=== PATIENT | female | born 1985 | race Hispanic/Latino ===

== ENCOUNTER 2018-01-02 11:45 | Outpatient (CLI) | payer BC ==
[2018-01-02 12:04] LABS: Hematocrit 37.1 % (30.3-42.9); Hemoglobin 12.5 gm/dl (10.1-14.3); Mean Corpuscular HGB Conc 34 % (30-34); Mean Corpuscular Hemoglobin 29 pg (28-32); Mean Corpuscular Volume 85 fl (79-97); Platelet Count 283 K/mm3 (140-440); Red Blood Count 4.35 M/mm3 (3.65-5.03); Red Cell Distribution Width 13.6 % (13.2-15.2)
== END 2018-01-02 11:46 | disposition home or self-care (01) ==
LOC: LAB 11:45
DX: Z34.01 Encounter for supervision of normal first pregnancy, first trimester (principal); Z3A.00 Weeks of gestation of pregnancy not specified
CPT/HCPCS: 36415; 82306; 82784; 85027; 86592; 86706; 86762; 86850; 86900; 86901; 87806

== ENCOUNTER 2018-07-19 19:21 | Inpatient (IN) | payer BC ==
[2018-07-19] MEDS ORDERED: NACL 0.9% 1000 ML IV ONE (20:12)
[2018-07-19 20:36] LABS: Bilirubin,Urine NEG (Negative); Blood,Urine MOD (Negative); Color,Urine Yellow (Yellow); Mucus,Urine FEW /HPF; Protein,Urine <15 mg/dL mg/dL (Negative); Urobilinogen,Urine < 2.0 mg/dL (<2.0)
[2018-07-19] MEDS ORDERED: ROCEPHIN/NS 1 GM/50 ML 1 GM/50 ML BAG IV ONE (21:00)
--- NOTE | 2018-07-19 21:00 | Emergency Department Report ---
ED Female HPI - General Chief complaint: Abdominal Pain Stated complaint: BURNING URINATION; 10DYS PP Time Seen by Provider: 07/19/18 20:11 Source: patient Mode of arrival: Ambulatory Limitations: No Limitations - History of Present Illness Initial comments: 33-year-old female presents to the hospital with complaints of difficulty urinating and fever. Patient had a delivery performed at [facility] by Dr. Marcelo on July 09 2018. She states that her urine did not drain for 3-4 hours due to a kink or obstruction in the Pacheco catheter 2. Once this was corrected patient had output of 750 ML of urine. On July 16 patient de veloped dysuria and urinary frequency. Her doctor called her in a prescription of Macrobid based on her description of her symptoms. She has been taken the medication for the last 3 days for a total of 6 doses but does not feel any better. She developed a fever over 101.4 today, she continues to have intermittent suprapubic abdominal pain worse with palpation, and continues to have significant dysuria. Patient took Motrin and Tylenol prior to arrival with improvement in fever. Mild nausea without vomiting. This was her first delivery. She continues to have vaginal bleeding - Related Data Allergies Allergy/AdvReac Type Severity Reaction Status Date / Time Sulfa (Sulfonamide Allergy Unknown Verified 07/19/18 20:23 Antibiotics) ED Review of Systems ROS: Stated complaint: BURNING URINATION; 10DYS PP Other details as noted in HPI Comment: All other systems reviewed and negative ED Past Medical Hx - Past Medical History Previous Medical History?: No - Surgical History Past Surgical History?: Yes Additional Surgical History: - Social History Smoking Status: Never Smoker Substance Use Type: None ED Physical Exam - General Limitations: No Limitations - Other Other exam information: General: No limitations, patient is alert in no acute distress Head exam: Atraumatic, normocephalic Eyes exam: Normal appearance ENT: Moist mucous membrane Neck exam: Normal inspection, full range of motion, no meningismus nontender Respiratory exam: Clear to auscultation bilateral, no wheezes, rales, crackles Cardiovascular: Normal rate and rhythm, normal heart sounds Abdomen: Soft, nondistended, suprapubic tenderness on exam, with normal bowel sounds, no rebound, or guarding. scar appears to be healing well without any wound dehiscence, erythema, or drainage. Extremity: Full range of motion normal inspection no deformity Back: Normal Inspection, full range of motion, no tenderness, Bilateral CVA tenderness Neurologic: Alert, oriented x3, cranial nerves intact, no motor or sensory deficit Psychiatric: normal affect, normal mood Skin: Warm, dry, intact ED Course Vital Signs 07/19/18 07/19/18 07/19/18 19:37 19:54 20:00 Temperature 99 F Pulse Rate 110 H 96 H Respiratory 18 25 H Rate Blood Pressure 118/69 101/72 O2 Sat by Pulse 96 96 97 Oximetry 07/19/18 07/19/18 07/19/18 20:24 20:28 20:30 Temperature Pulse Rate 94 H Respiratory 16 19 Rate Blood Pressure 101/72 108/73 O2 Sat by Pulse 99 97 Oximetry 07/19/18 07/19/18 07/19/18 20:46 21:00 21:16 Temperature Pulse Rate 96 H 90 79 Respiratory 24 17 13 Rate Blood Pressure 108/73 105/69 108/73 O2 Sat by Pulse 97 98 97 Oximetry 07/19/18 07/19/18 07/19/18 21:30 21:46 22:00 Temperature Pulse Rate 91 H 82 87 Respiratory 20 17 21 Rate Blood Pressure 107/69 107/69 105/73 O2 Sat by Pulse 98 98 Oximetry 07/19/18 07/19/18 07/19/18 22:30 22:46 23:00 Temperature Pulse Rate 90 85 90 Respiratory 22 21 21 Rate Blood Pressure 109/70 109/70 107/72 O2 Sat by Pulse 99 98 Oximetry 07/19/18 23:16 Temperature Pulse Rate 85 Respiratory 19 Rate Blood Pressure 107/72 O2 Sat by Pulse 97 Oximetry - Reevaluation(s) Reevaluation #1: 07/19/18 23:24 Unfortunately patient urinated prior to collection of cath - Consultations Consultation #1: 07/19/18 23:24 case d/w with Dr Ibrahim, will admit, requests cath urine ED Medical Decision Making - Lab Data Result diagrams: 07/19/18 20:43 07/19/18 20:43 Lab Results 07/19/18 07/19/18 07/19/18 Range/Units 20:19 20:43 20:43 WBC 9.9 (4.5-11.0) K/mm3 RBC 3.45 L (3.65-5.03) M/mm3 Hgb 9.9 L (10.1-14.3) gm/dl Hct 29.9 L (30.3-42.9) % MCV 87 (79-97) fl MCH 29 (28-32) pg MCHC 33 (30-34) % RDW 15.1 (13.2-15.2) % Plt Count 426 (140-440) K/mm3 Lymph % (Auto) 16.2 (13.4-35.0) % [place] % (Auto) 3.8 (0.0-7.3) % Eos % (Auto) 1.6 (0.0-4.3) % Baso % (Auto) 0.3 (0.0-1.8) % Lymph # 1.6 (1.2-5.4) K/mm3 [place] # 0.4 (0.0-0.8) K/mm3 Eos # 0.2 (0.0-0.4) K/mm3 Baso # 0.0 (0.0-0.1) K/mm3 Seg Neutrophils % 78.1 H (40.0-70.0) % Seg Neutrophils # 7.7 (1.8-7.7) K/mm3 VBG pH (7.320-7.420) Sodium 141 (137-145) mmol/L Potassium 4.5 (3.6-5.0) mmol/L Chloride 102.4 (98-107) mmol/L Carbon Dioxide 24 (22-30) mmol/L Anion Gap 19 mmol/L BUN 27 H (7-17) mg/dL Creatinine 0.7 (0.7-1.2) mg/dL Estimated GFR > 60 ml/min BUN/Creatinine Ratio 39 % Glucose 99 (65-100) mg/dL Lactic Acid (0.7-2.0) mmol/L Calcium 9.5 (8.4-10.2) mg/dL Total Bilirubin 0.20 (0.1-1.2) mg/dL AST 19 (5-40) units/L ALT 23 (7-56) units/L Alkaline Phosphatase 168 H (35-129) units/L Total Protein 6.9 (6.3-8.2) g/dL Albumin 4.0 (3.9-5) g/dL Albumin/Globulin Ratio 1.4 % HCG, Quant (0-4) mIU/mL Urine Color Yellow (Yellow) Urine Turbidity Clear (Clear) Urine pH 5.0 (5.0-7.0) Ur Specific [place] 1.013 (1.003-1.030) Urine Protein <15 mg/dl (Negative) mg/dL Urine Glucose (UA) Neg (Negative) mg/dL Urine Ketones Neg (Negative) mg/dL Urine Blood Mod (Negative) Urine Nitrite Neg (Negative) Urine Bilirubin Neg (Negative) Urine Urobilinogen < 2.0 (<2.0) mg/dL Ur Leukocyte Esterase Lg (Negative) Urine WBC (Auto) 46.0 H (0.0-6.0) /HPF Urine RBC (Auto) 5.0 (0.0-6.0) /HPF U Epithel Cells (Auto) 1.0 (0-13.0) /HPF Urine Mucus Few /HPF 07/19/18 07/19/18 07/19/18 Range/Units 20:43 20:43 20:43 WBC (4.5-11.0) K/mm3 RBC (3.65-5.03) M/mm3 Hgb (10.1-14.3) gm/dl Hct (30.3-42.9) % MCV (79-97) fl MCH (28-32) pg MCHC (30-34) % RDW (13.2-15.2) % Plt Count (140-440) K/mm3 Lymph % (Auto) (13.4-35.0) % [place] % (Auto) (0.0-7.3) % Eos % (Auto) (0.0-4.3) % Baso % (Auto) (0.0-1.8) % Lymph # (1.2-5.4) K/mm3 [place] # (0.0-0.8) K/mm3 Eos # (0.0-0.4) K/mm3 Baso # (0.0-0.1) K/mm3 Seg Neutrophils % (40.0-70.0) % Seg Neutrophils # (1.8-7.7) K/mm3 VBG pH 7.391 (7.320-7.420) Sodium (137-145) mmol/L Potassium (3.6-5.0) mmol/L Chloride (98-107) mmol/L Carbon Dioxide (22-30) mmol/L Anion Gap mmol/L BUN (7-17) mg/dL Creatinine (0.7-1.2) mg/dL Estimated GFR ml/min BUN/Creatinine Ratio % Glucose (65-100) mg/dL Lactic Acid 0.80 (0.7-2.0) mmol/L Calcium (8.4-10.2) mg/dL Total Bilirubin (0.1-1.2) mg/dL AST (5-40) units/L ALT (7-56) units/L Alkaline Phosphatase (35-129) units/L Total Protein (6.3-8.2) g/dL Albumin (3.9-5) g/dL Albumin/Globulin Ratio % HCG, Quant 2.06 (0-4) mIU/mL Urine Color (Yellow) Urine Turbidity (Clear) Urine pH (5.0-7.0) Ur Specific [place] (1.003-1.030) Urine Protein (Negative) mg/dL Urine Glucose (UA) (Negative) mg/dL Urine Ketones (Negative) mg/dL Urine Blood (Negative) Urine Nitrite (Negative) Urine Bilirubin (Negative) Urine Urobilinogen (<2.0) mg/dL Ur Leukocyte Esterase (Negative) Urine WBC (Auto) (0.0-6.0) /HPF Urine RBC (Auto) (0.0-6.0) /HPF U Epithel Cells (Auto) (0-13.0) /HPF Urine Mucus /HPF - Radiology Data Radiology results: report reviewed FINAL REPORT PROCEDURE: CT abdomen and pelvis with contrast. TECHNIQUE: Computerized axial tomography of the abdomen and pelvis was performed after the IV injection of iodinated nonionic contrast. HISTORY: Fever, suprapubic pain, recent urinary tract infection. COMPARISON: No prior studies are available for comparison. FINDINGS: The lung bases are clear. There are no pleural effusions. The heart size is normal. The liver, pancreas and spleen appear normal. The gallbladder is present. There is no biliary dilatation. The adrenal glands are not enlarged. Both kidneys appear normal in size and configuration. The abdominal aorta has a normal caliber. There is no retroperitoneal adenopathy. The unopacified gastrointestinal tract is unremarkable. The appendix has probably been removed. The bladder is unremarkable. The uterus is enlarged. It is wondered if the patient is recently . Clinical correlation is recommended. The adnexal regions are unremarkable. The regional skeleton appears intact. IMPRESSION: Diffuse enlargement of the uterus. Question recent state versus leiomyomas. Probable previous appendectomy. Otherwise normal studies of the abdomen and pelvis. - Medical Decision Making Hr improved after NS IV Rocephin provided urine and blood cultures pending Urine cath requested, patient just urinated prior to urine cath order - Differential Diagnosis UTI, infection Critical Care Time: No Critical care attestation.: If time is entered above; I have spent that time in minutes in the direct care of this critically ill patient, excluding procedure time. ED Disposition Clinical Impression: UTI (urinary tract infection), S/P , Failure of outpatient treatment Disposition: 09 OP ADMIT IP TO THIS HOSP Is pt being admited?: Yes Condition: Stable Referrals: PRIMARY CARE, [Primary Care Provider] - 3-5 Days Time of Disposition: 23:28 (Dr Ibrahim/merari)
[2018-07-19 21:11] LABS: Basophils % (Auto) 0.3 % (0.0-1.8); Eosinophils # (Auto) 0.2 K/mm3 (0.0-0.4); Eosinophils % (Auto) 1.6 % (0.0-4.3); Hematocrit 29.9 % (30.3-42.9); Hemoglobin 9.9 gm/dl (10.1-14.3); Lymphocytes # (Auto) 1.6 K/mm3 (1.2-5.4); Lymphocytes % (Auto) 16.2 % (13.4-35.0); Mean Corpuscular HGB Conc 33 % (30-34); Mean Corpuscular Hemoglobin 29 pg (28-32); Mean Corpuscular Volume 87 fl (79-97); Monocytes # (Auto) 0.4 K/mm3 (0.0-0.8); Monocytes % (Auto) 3.8 % (0.0-7.3); Platelet Count 426 K/mm3 (140-440); Red Blood Count 3.45 M/mm3 (3.65-5.03); Red Cell Distribution Width 15.1 % (13.2-15.2)
[2018-07-19 21:25] LABS: Alanine Aminotransferase 23 units/L (7-56); BUN/Creatinine Ratio 39; Blood Urea Nitrogen 27 mg/dL (7-17); Calcium 9.5 mg/dL (8.4-10.2); Hemolysis Index 4
--- NOTE | 2018-07-19 22:57 | Cat Scan Report ---
FINAL REPORT PROCEDURE: CT abdomen and pelvis with contrast. TECHNIQUE: Computerized axial tomography of the abdomen and pelvis was performed after the IV inject ion of iodinated nonionic contrast. HISTORY: Fever, suprapubic pain, recent urinary tract infection. COMPARISON: No prior studies are available for comparison. FINDINGS: The lung bases are clear. There are no pleural effusions. The heart size is normal. The liver, pancre as and spleen appear normal. The gallbladder is present. There is no biliary dilatation. The adrenal glands are not enlarged. Both kidneys appear normal in size and configuration. The abdominal aorta simms s a normal caliber. There is no retroperitoneal adenopathy. The unopacified gastrointestinal tract is unremarkable. The appendix has probably been removed. The bladder is unremarkable. The uterus is enl arged. It is wondered if the patient is recently . Clinical correlation is recommended. The adnexal regions are unremarkable. The regional skeleton appears intact. IMPRESSION: Diffuse enlargement of the uterus. Question recent state versus leiomyomas. Probable previ ous appendectomy. Otherwise normal studies of the abdomen and pelvis.
[2018-07-20 01:55] LABS: Bilirubin,Urine NEG (Negative); Blood,Urine NEG (Negative); Color,Urine Straw (Yellow); Protein,Urine <15 mg/dL mg/dL (Negative); Urobilinogen,Urine < 2.0 mg/dL (<2.0)
[2018-07-20] MEDS ORDERED: ZOFRAN ODT PO PRN (08:19)
[2018-07-20] MEDS ORDERED: MYLICON PO PRN (08:19)
[2018-07-20] MEDS ORDERED: DULCOLAX PR PRN (08:19)
[2018-07-20] MEDS ORDERED: MILK OF MAGNESIA PO PRN (08:19)
[2018-07-20] MEDS ORDERED: PHENERGAN PR PRN (08:19)
[2018-07-20] MEDS ORDERED: PHENERGAN PO PRN (08:19)
[2018-07-20] MEDS ORDERED: DEEP SEA NS PRN (08:19)
[2018-07-20] MEDS ORDERED: SUDAFED PO PRN (08:19)
[2018-07-20] MEDS ORDERED: TYLENOL PO PRN (08:19)
[2018-07-20] MEDS ORDERED: LANSINOH TP PRN (08:19)
[2018-07-20] MEDS ORDERED: BENADRYL PO PRN ×2 (08:19)
[2018-07-20] MEDS ORDERED: ALUM-MAG HYDROX-SIMETH 200-200-20MG/5ML PO PRN (08:19)
[2018-07-20] MEDS ORDERED: COLACE PO PRN (08:19)
[2018-07-20] MEDS ORDERED: TUCKS PAD TP PRN (08:19)
--- NOTE | 2018-07-20 08:28 | Progress Note ---
Assessment and Plan - Patient Problems (1) Failure of outpatient treatment Current Visit: Yes Status: Acute Plan to address problem: will start amoxicillin for now, and observe today, ? allow home if no further fever by 1800. Plan of care discussed with patient and her she voiced understanding and agrees with plan of care (2) S/P Current Visit: Yes Status: Acute (3) UTI (urinary tract infection) Current Visit: Yes Status: Acute Subjective - Subjective Date of service: 07/20/18 Principal diagnosis: Complicated UTI, s/p C/S for breech presentation, failed induction Interval history: See Dr. Lindsay's history Patient states she started having sympotms of UTI shorter after c/s on 07/09/2018. Symptoms became progressively worse after discharge home. After discussing symptoms with her MD by phone, he called in Sqootbid for her on 07/17/2018. In spite of medication she experienced at fever of 101.4 at ~1800 last pm. She presented to ED for evaluation, no obvious evidence of pylelonephritis and she was given Rocephin IV. She feels better today, symptoms have significantly improved. She states she has a slight sore throat and had a headache, denies cough or abdominal pain or any source for fever Objective - Vital Signs Latest vital signs: Vital Signs Temp Pulse Resp BP BP BP Pulse Ox 07/20/18 07:50 98.5 F 101 H 20 107/72 07/20/18 05:00 98.4 F 80 16 113/62 07/20/18 02:15 98.6 F 72 18 132/78 07/20/18 00:30 88 21 117/80 07/20/18 00:00 96 H 20 116/79 98 07/19/18 23:30 84 19 100/76 07/19/18 23:16 85 19 107/72 97 07/19/18 23:00 90 21 107/72 07/19/18 22:46 85 21 109/70 98 07/19/18 22:30 90 22 109/70 99 07/19/18 22:00 87 21 105/73 98 07/19/18 21:46 82 17 107/69 98 07/19/18 21:30 91 H 20 107/69 07/19/18 21:16 79 13 108/73 97 07/19/18 21:00 90 17 105/69 98 07/19/18 20:46 96 H 24 108/73 97 07/19/18 20:30 94 H 19 108/73 97 07/19/18 20:28 101/72 07/19/18 20:24 16 99 07/19/18 20:00 96 H 25 H 101/72 97 07/19/18 19:54 96 07/19/18 19:37 99 F 110 H 18 118/69 96 Intake and Output 07/19/18 07/20/18 07/20/18 22:59 06:59 14:59 Intake Total 20 320 Output Total 1400 Balance 20 -1080 Intake: IV 20 20 Left Wrist 20 20 Intake, Free Water 300 Output: Urine 1400 Void 1400 Other: Total, Output Amount 600 # Voids Void 1 Weight 65.7 kg 65.7 kg - Exam Breasts: Present: normal, , other (pumping, no s/s mastitis). A bsent: pain, skin changes, tender, engorged Lungs: Present: Clear to auscultation, Normal air movement Abdomen: Present: normal appearance, soft. Absent: distention, tenderness Uterus: Present: fundal height below umbilicus. Absent: tenderness Extremities: Present: normal. Absent: tenderness, edema Incision: Present: normal, dry, intact (no s/s infection) Comments: No CVAT or flank tenderness (B) - Labs Labs: Abnormal lab results 07/19/18 07/19/18 07/19/18 Range/Units 20:19 20:43 20:43 RBC 3.45 L (3.65-5.03) M/mm3 Hgb 9.9 L (10.1-14.3) gm/dl Hct 29.9 L (30.3-42.9) % Seg Neutrophils % 78.1 H (40.0-70.0) % BUN 27 H (7-17) mg/dL Lactic Acid (0.7-2.0) mmol/L Alkaline Phosphatase 168 H (35-129) units/L Ur Specific [place] (1.003-1.030) Urine WBC (Auto) 46.0 H (0.0-6.0) /HPF 07/19/18 07/20/18 Range/Units 23:00 01:49 RBC (3.65-5.03) M/mm3 Hgb (10.1-14.3) gm/dl Hct (30.3-42.9) % Seg Neutrophils % (40.0-70.0) % BUN (7-17) mg/dL Lactic Acid 0.40 L (0.7-2.0) mmol/L Alkaline Phosphatase (35-129) units/L Ur Specific [place] 1.033 H (1.003-1.030) Urine WBC (Auto) (0.0-6.0) /HPF
[2018-07-20] MEDS ORDERED: MOTRIN PO SCH (09:00)
[2018-07-20] MEDS ORDERED: SODIUM CHLORIDE FLUSH SYRINGE 10 ML IV NR (09:00)
[2018-07-20] MEDS: PRENATAL VITAMIN PO SCH (09:14)
[2018-07-20] MEDS: PERCOCET 5/325 PO PRN ×2 (09:15→22:58)
[2018-07-20] MEDS: TRIMOX PO SCH ×2 (09:16→14:53)
[2018-07-20] MEDS: MOTRIN PO PRN (19:02)
--- NOTE | 2018-07-20 19:22 | Event Note ---
Date: 07/20/18 S/w ZION Romero re: patient's concern for fever and chills and body aches. Attempted to contact patient by phone however no answer. She had no classic s/s PP endometritis on exam this am, these new complaints may indicate late onset endometritis, at this time, will change to Augmentin and observe over night
[2018-07-20 20:11] LABS: Hematocrit 29.3 % (30.3-42.9); Hemoglobin 9.9 gm/dl (10.1-14.3)
[2018-07-20] MEDS: AUGMENTIN 875 MG PO SCH (23:00)
--- NOTE | 2018-07-21 06:10 | Progress Note ---
Assessment and Plan Pt ambulating to toilet Voided w/o difficulty. VSS Afebrile. Pt c/o feeling weak and fatigued. States she has been texting with . Abdomen is tender approx 3-4 cm above incision. Incision is D&I w/o redness. Blood cultures No growth after 24 hours. Pt states she desires to go home but asks for ABX and pain medication. Encouraged pt to ambulate in [place], have a shower. Will consult with - Patient Problems (1) Failure of outpatient treatment Onset Date: ~07/21/18 Current Visit: Yes Status: Acute (2) S/P Onset Date: ~07/21/18 Current Visit: Yes Status: Acute (3) UTI (urinary tract infection) Onset Date: ~07/21/18 Current Visit: Yes Status: Acute Subjective - Subjective Date of service: 07/21/18 (pt OOB ambulating to toilet) Principal diagnosis: Complicated UTI, s/p C/S for breech presentation, failed induction Patient reports: voiding normally, ambulating normally Objective - Vital Signs Latest vital signs: Vital Signs Temp Pulse Resp BP BP Pulse Ox 07/21/18 04:30 98.0 F 64 12 104/67 96 07/20/18 23:47 97.9 F 83 20 111/70 96 07/20/18 22:58 18 07/20/18 21:14 99.0 F 89 20 102/67 96 07/20/18 17:30 104 H 98 07/20/18 17:07 98.9 F 20 109/78 98 07/20/18 16:30 98.3 F 07/20/18 12:25 98.3 F 83 22 119/70 95 07/20/18 09:15 18 07/20/18 07:50 98.5 F 101 H 20 107/72 Intake and Output 07/20/18 07/20/18 07/21/18 14:59 22:59 06:59 Intake Total 1080 840 100 Output Total 600 1000 300 Balance 480 -160 -200 Intake: IV 20 Left Wrist 20 Oral 1080 820 100 Output: Urine 600 1000 300 Void 600 1000 300 Other: Total, Intake Amount 480 100 100 Total, Output Amount 600 400 300 Voiding Method Toilet # Voids Void 1 - Exam Breasts: Present: normal Cardiovascular: Present: Regular rate Lungs: Present: Normal air movement Abdomen: Present: normal appearance, soft, normal bowel sounds Vulva: both: normal Uterus: Present: normal, tenderness, fundal height below umbilicus Extremities: Present: normal Deep Tendon Reflex Grade: Normal +2 Incision: Present: normal - Labs Labs: Abnormal lab results 07/20/18 Range/Units 19:52 Hgb 9.9 L (10.1-14.3) gm/dl Hct 29.3 L (30.3-42.9) %
[2018-07-21] MEDS: PRENATAL VITAMIN PO SCH (09:12)
[2018-07-21] MEDS: PERCOCET 5/325 PO PRN ×2 (09:12→14:18)
[2018-07-21] MEDS: AUGMENTIN 875 MG PO SCH (09:18)
--- NOTE | 2018-07-21 12:11 | Discharge Summary ---
Providers - Providers Date of Admission: 07/19/18 23:51 Date of discharge: 07/21/18 (pt to f/u with Dr.Boots Isidro) Attending physician: MINESH DONALDSON Primary care physician: PRINCIPAL ENGINEER Hospitalization Reason for admission: postop febrile @ home Condition: Good Hospital course: cultures no growth; responded well to hydration, rest and ABX Disposition: DC-01 TO HOME OR SELFCARE - Discharge Diagnoses (1) Failure of outpatient treatment Status: Acute Comment: f/u with surgeon as per his recommendation (2) S/P Status: Acute Core Measure Documentation - Palliative Care Palliative Care/ Comfort Measures: Not Applicable - Core Measures Any of the following diagnoses?: none - VTE Discharge Requirements Deep Vein Thrombosis/Pulmonary Embolism Present on Admission: No Has pt received <5 days of overlap therapy or INR<2.0: No Anticoagulant overlap therapy prescribed at discharge: No Contraindication No Overlap Therapy order at DC: Not Indicated - Acute IN Discharge Requirements Aspirin at discharge: No Reason for no aspirin on DC: Medical contraindication CORNELL/ARB for LVSD if EF <40%: Not Applicable Reason for no CORNELL/ARB: Medical contraindication Beta josr at discharge: No Reason for no beta josr on DC: Medical contraindication Statin for LDL = or >100 mg/dl on DC: Not Applicable Reason for no statin on DC: Medical contraindication - Heart Failure Discharge Requirements CORNELL/ARB for LVSD if EF <40%: Not Applicable Reason for no CORNELL/ARB: Medical contraindication Beta josr at discharge: No Reason for no beta josr on DC: Medical contraindication - Stroke Discharge Requirements Statin for LDL = or >70 mg/dl on DC: Not Applicable Reason for no statin on DC: Not Indicated Anticoag for atrial fib/atrial flutter: Not Applicable Reason for no anticoag for AF/F on DC: Not Indicated Antithrombotic for ischemic stroke: No Reason for no antithrombotic on DC: Not Indicated Exam - Constitutional Vitals: Temp Pulse Resp BP Pulse Ox 98.1 F 94 H 18 136/64 96 07/21/18 07:00 07/21/18 09:37 07/21/18 07:00 07/21/18 07:00 07/21/18 09:37 General appearance: Present: no acute distress, well-nourished - EENT Eyes: Present: PERRL ENT: hearing intact, clear oral mucosa - Neck Neck: Present: supple, normal ROM - Respiratory Respiratory effort: normal Respiratory: bilateral: CTA - Cardiovascular Heart Sounds: Present: S1 & S2. Absent: rub, click - Extremities Extremities: pulses symmetrical, No edema Peripheral Pulses: within normal limits - Abdominal General gastrointestinal: Present: soft, non-tender, non-distended, normal bowel sounds Female genitourinary: Present: deferred, normal - Rectal Rectal Exam: deferred - Integumentary Integumentary: Present: clear, warm, dry - Musculoskeletal Musculoskeletal: gait normal, strength equal bilaterally - Psychiatric Psychiatric: appropriate mood/affect, intact judgment & insight - Neurologic Neurologic: CNII-XII intact, moves all extremities Plan Activity: advance as tolerated Weight Bearing Status: Weight Bear as Tolerated Diet: regular Wound: open to air, keep clean and dry Follow up with: PRIMARY CARE,MD [Primary Care Provider] - 3 Days (follow up with as per his recommendation take medications as prescribed) Prescriptions: Amoxicillin [Trimox CAP] 500 mg PO Q8H #21 capsule Amoxicillin/K Clav Tab [Augmentin 875 mg] 1 tab PO Q12HR #10 tab Ibuprofen [Motrin 800 MG tab] 800 mg PO TID PRN #30 tablet PRN Reason: Pain
[2018-07-21] MEDS: MOTRIN PO PRN (14:19)
[2018-07-21 16:09] VITALS: BP 101/66
== END 2018-07-21 16:15 | disposition home or self-care (01) | DRG 776 ==
LOC: ED 19:21 → OB 23:51
PROVIDERS: ADMIT Obstetrics & Gynecology; ATTEND Obstetrics & Gynecology
DX: O86.22 Infection of bladder following delivery (principal); Z78.9 Other specified health status; Z98.891 History of uterine scar from previous surgery; Z88.2 Allergy status to sulfonamides
CPT/HCPCS: 36415; 74177; 80053; 81001; 82140; 82805; 84702; 85014; 85018; 85025; 87040; 87086; 87400; G0378; J0696; J7030; Q9967

== ENCOUNTER 2021-01-11 14:24 | Outpatient (CLI) | payer BC ==
[2021-01-11 16:11] LABS: Basophils % (Auto) 0.2 % (0.0-1.8); Eosinophils # (Auto) 0.2 K/mm3 (0.0-0.4); Eosinophils % (Auto) 1.9 % (0.0-4.3); Hematocrit 36.5 % (30.3-42.9); Hemoglobin 12.7 gm/dl (10.1-14.3); Lymphocytes # (Auto) 2.1 K/mm3 (1.2-5.4); Mean Corpuscular HGB Conc 35 % (30-34); Mean Corpuscular Volume 85 fl (79-97); Monocytes # (Auto) 0.5 K/mm3 (0.0-0.8); Monocytes % (Auto) 5.8 % (0.0-7.3); Platelet Count 288 K/mm3 (140-440); Red Cell Distribution Width 14.1 % (13.2-15.2)
[2021-01-11 16:35] LABS: Hepatitis C Virus Antibody Non-Reactive (NonReactive)
== END 2021-01-11 14:25 | disposition home or self-care (01) ==
LOC: LAB 14:24
PROVIDERS: ATTEND Obstetrics & Gynecology
DX: O09.891 Supervision of other high risk pregnancies, first trimester (principal); Z3A.11 11 weeks gestation of pregnancy
CPT/HCPCS: 36415; 85025; 85660; 86592; 86706; 86762; 86803; 86850; 86900; 86901; 87086; 87806

== ENCOUNTER 2021-02-08 14:27 | Outpatient (CLI) | payer BC ==
[2021-02-08 15:22] LABS: Alanine Aminotransferase 21 units/L (7-56); Albumin 3.9 g/dL (3.9-5); Blood Urea Nitrogen 9 mg/dL (7-17); Calcium 8.9 mg/dL (8.4-10.2); Hemolysis Index 21
[2021-02-08 15:32] LABS: BUN/Creatinine Ratio 23
[2021-02-22 08:40] LABS: AFP, Serum SEE SCANNED RESULT; Estradiol SEE SCANNED RESULT
[2021-02-22 08:41] LABS: Hx of Neural Tube Defect SEE SCANNED RESULT; Maternal Weight SEE SCANNED RESULT; Number of Fetuses SEE SCANNED RESULT
== END 2021-02-08 14:28 | disposition home or self-care (01) ==
LOC: LAB 14:27
PROVIDERS: ATTEND Obstetrics & Gynecology
DX: Z34.82 Encounter for supervision of other normal pregnancy, second trimester (principal); Z3A.15 15 weeks gestation of pregnancy
CPT/HCPCS: 36415; 80053; 82106; 83036

== ENCOUNTER 2021-04-10 10:33 | Outpatient (CLI) | payer BC ==
[2021-04-10 10:49] LABS: Hemoglobin 11.9 gm/dl (10.1-14.3)
== END 2021-04-10 10:34 | disposition home or self-care (01) ==
LOC: LAB 10:33
PROVIDERS: ATTEND Obstetrics & Gynecology
DX: O09.92 Supervision of high risk pregnancy, unspecified, second trimester (principal); Z3A.24 24 weeks gestation of pregnancy
CPT/HCPCS: 36415; 82951; 85014; 85018

== ENCOUNTER 2021-06-27 14:30 | Outpatient (CLI) | payer BC | END 2021-06-27 14:31 | disposition home or self-care (01) | LOC: LAB 14:30 | PROVIDERS: ATTEND Obstetrics & Gynecology | DX: Z34.83 Encounter for supervision of other normal pregnancy, third trimester (principal); Z3A.00 Weeks of gestation of pregnancy not specified | CPT/HCPCS: 36415; 86592; 87806 ==

== ENCOUNTER 2021-07-20 05:51 | Inpatient (IN) | payer BC ==
--- NOTE | 2021-07-19 14:04 | History and Physical Report ---
History of Present Illness Date of examination: 07/12/21 History of present illness: Menstrual History Regularity: regular Menses every: 28 days Duration: 3-4 LMP: 10/20/2020 LMP reliability: definite LMP character: normal test type: urine test Date: 12/14/2020 BC at conception: none Planned ? yes EDC Calculations LMP: 07/27/2021 EDC Confirmation: 07/27/2021 Gestational Age: 7 6/7 weeks Past History : 3 Term Births: 1 Premature Births: 0 Living Children: 1 Para: 1 Mult. Births: 0 Prev : 1 Prev. attempt? 0 Aborta: 1 Elect. Ab: 0 Spont. Ab: 1 Ectopics: 0 # 1 Delivery date: 07/2017 Weeks Gestation: 5 Delivery type: SAB Comments: denies any complications # 2 Delivery date: 2017 Weeks Gestation: 40+ Delivery type: Hours of labor: 51 Anesthesia type: epidural [place] [facility] [place]: Female weight: 7-5 Name: marion Comments: POLY. SROM BREECH.[facility] [place]; her water broke w/o labor, was there several hours, then moved to [facility] [place] Dr Simental allowed labor and attempted a version at that point decision was made to move with c/s Past Medical History: Anxiety Kidney Infection was seen in ED by Dr Ibrahim after her last delivery Past Surgical History: Past Medical History Kidney Disease/UTI: yes Surgery (Non-acreage reporter): Abnormal PAP: negative NALINI Exposure: negative Infertility: negative Uterine Anomaly: negative Uterine Surgery (not C/S): negative Other Gynecologic Problems: negative Social Hx: homemaker Infection History Hx of STD: none HIV Risk Eval: no Hepatitis B Risk Eval: low risk Personal hx. of genital herpes: no Partner hx. of genital herpes: no Rash, Viral, or Febrile illness since last LMP? no Varicella/Chicken Pox Status: Previous Disease TB Risk: no Genetic History Congenital Heart Defect: Mom: no Dad: no Jessica Disease: Mom: no Dad: no Thalassemia Mom: no Dad: no Neural Tube Defect Mom: no Dad: no Down's Syndrome Mom: no Dad: no Surjit-Sachs Mom: no Dad: no Sickle Cell Disease/Trait Mom: no Dad: no Hemophilia Mom: no Dad: no Muscular Dystrophy Mom: no Dad: no Cystic Fibrosis Mom: no Dad: no [place] Chorea Mom: no Dad: no Mental Retardation Mom: no Dad: no Fragile X Mom: no Dad: no Other Genetic/Chromosomal Disorder Mom: no Dad: no Child w/other defect Mom: no Dad: no Enviromental Exposures Xray Exposure: no Medication, drug, or alcohol use since LMP: no Chemical/Other Exposure: no Exposure to Cat Liter: no Hx of Parvovirus (Fifth Disease): no Occupational Exposure to Children: none Active Medications (reviewed today): promethazine 12.5 mg tablet (promethazine) 1 by mouth every six hours as needed 114-iron a-g-folate 1 20 mg iron- 1 mg tablet ( 114-iron a-g-folate 1) Lullaby Double Electric Breast device (breast pump) Vitamin D3 10 mcg (400 unit) tablet (cholecalciferol (vitamin d3)) Unisom (diphenhydramine) 50 mg/30 mL liquid (diphenhydramine hcl) pyridoxine (vitamin B6) 25 mg tablet (pyridoxine (vitamin b6)) Pepcid 20 mg tablet (famotidine) magnesium chloride 64 mg magnesium tablet (magnesium chloride) Zoloft 25 mg tablet (sertraline) Current Allergies (reviewed today): * SULFA (Critical) Physical Exam General appearance: well nourished, healthy appearing, no distress Chest/Lungs: respiratory effort normal, lungs clear to auscultation Cardiovascular: normal rate and rhythm Care Plan: Abnormal glucose NEC (ICD-790.29) (YAX85-D76.09) Using Freestyle zion, she did not have a 3hgtt Maternal care for low transverse scar from previous delivery (ICD- 654.23) (APN14-I73.211) RhD negative (ICD-790.99) (QZC07-F84.83) Problem # 1: Maternal care for low transverse scar from previous delivery (ICD-654.23) (AVM54-R30.211) Her updated medication list for this problem includes: Vitamin D3 10 Mcg (400 Unit) Tablet (Cholecalciferol (vitamin d3)) Pyridoxine (vitamin B6) 25 Mg Tablet (Pyridoxine (vitamin b6)) Orders: OB follow up (CPT-67701) Urine Chemstrip (CPT-82942) Risk associated with delivery were discussed, including but not limited to, bleeding that may require blood transfusions, infection that may be life threatening, injury to adjacent organs specifically bowel or bladder that may require further surgeries, or major vascular injury. She was also informed that when she has had a delivery she may require repeat deliveries for all subsequent pregnancies. Alternatives for this procedure ex[lained. Questions were encouraged and answered, consents were reviewed and signed. She voiced understanding and desired to proceed with delivery. She was instructed to not eat anything after midnight the morning of her surgery. Problem # 2: Abnormal glucose NEC (ICD-790.29) (FTW04-R64.09) Orders: OB follow up (CPT-92728) Urine Chemstrip (CPT-14548) Problem # 3: RhD negative (ICD-790.99) (EMS20-C62.83) Orders: OB follow up (CPT-23709) Urine Chemstrip (CPT-72745) Problem # 4: Advanced maternal age, third trimester (ICD-V23.82) (ICD10- O09.523) Medications Added to Medication List This Visit: 1) Promethazine 12.5 Mg Tablet (Promethazine) .... 1 by mouth every six hours as needed 2) 114-iron A-g-folate 1 20 Mg Iron- 1 Mg Tablet ( 114-iron a-g-folate 1) 3) Lullaby Double Electric Breast Device (Breast pump) 4) Vitamin D3 10 Mcg (400 Unit) Tablet (Cholecalciferol (vitamin d3)) 5) Unisom (diphenhydramine) 50 Mg/30 Ml Liquid (Diphenhydramine hcl) 6) Pyridoxine (vitamin B6) 25 Mg Tablet (Pyridoxine (vitamin b6)) 7) Pepcid 20 Mg Tablet (Famotidine) 8) Magnesium Chloride 64 Mg Magnesium Tablet (Magnesium chloride) 9) Zoloft 25 Mg Tablet (Sertraline) Past History - Obstetrical History Expected Date of Delivery: 07/21/21 Actual Gestation: 39 Week(s) 5 Day(s) Medications and Allergies Allergies Allergy/AdvReac Type Severity Reaction Status Date / Time Sulfa (Sulfonamide Allergy fever Verified 07/20/18 12:40 Antibiotics) Home Medications Medication Instructions Recorded Confirmed Last Taken Type Amoxicillin [Trimox CAP] 500 mg PO Q8H #21 capsule 07/20/18 Unknown Rx B 6 Vitamin 100 mg PO QDAY 07/20/18 07/20/18 07/19/18 History 1 tab Colace CAP 1 tab PO QDAY 07/20/18 07/20/18 07/20/18 History 1 tab Vit-Fe Fumar-FA [ 1 tab PO QDAY 07/20/18 07/20/18 07/20/18 History Vitamin] 1 tab Amoxicillin/K Clav Tab [Augmentin 1 tab PO Q12HR #10 tab 07/21/18 Unknown Rx 875 mg] Ibuprofen [Motrin 800 MG tab] 800 mg PO TID PRN #30 tablet 07/21/18 Unknown Rx Active Meds: Active Medications Citric Acid/Sodium Citrate (Bicitra Oral Liqd 30ml) 30 ml PO ONCE ONE Stop: 07/20/21 05:31 Famotidine (Famotidine 20 Mg/2 Ml Inj) 20 mg IV ONCE ONE Stop: 07/20/21 05:31 Lactated Ringer's (Lactated Ringers) 1,000 mls @ 2,250 mls/hr IV PREOP DESMOND Stop: 07/21/21 05:57 Oxytocin/Sodium Chloride (Pitocin/Ns 30 Unit/500ml) 30 units in 500 mls @ 0 mls/hr IV TITR DESMOND; Protocol Cefazolin Sodium (Ancef/Sterile Water 2 Gm/20 Ml) 2 gm in 20 mls @ 80 mls/hr IV PREOP NR; Protocol Stop: 07/20/21 20:00 Metoclopramide HCl (Metoclopramide 10 Mg/2 Ml Inj) 10 mg IV ONCE ONE Stop: 07/20/21 05:31 Results All other labs normal. Assessment and Plan - Patient Problems (1) 39 weeks gestation of Status: Acute (2) Rh negative status during Status: Chronic (3) AMA (advanced maternal age) multigravida 35+ Status: Chronic (4) LGA (large for gestational age) fetus Status: Acute (5) Abnormal glucose affecting Status: Acute (6) S/P Onset Date: ~07/21/18 Status: Acute
[~2021-07-20 05:51] MED LIST: BICITRA ORAL LIQD 30ML PO NR; FAMOTIDINE 20 MG/2 ML INJ IV NR; LACTATED RINGERS 1,000 ML IV SCH; METOCLOPRAMIDE 10 MG/2 ML INJ IV NR; OXYTOCIN DRIP 30 UNITS/500 ML BAG IV SCH; ceFAZolin/Water 2 GM/20 ML 2 GM/20 ML SYRINGE IV NR
[2021-07-20] MEDS ORDERED: METHYLERGONOVINE MALEATE 0.2 MG/ML VIAL IM PRN (06:39)
[2021-07-20] MEDS ORDERED: miSOPROStol 200 MCG TAB PR PRN (06:39)
[2021-07-20] MEDS ORDERED: CARBOPROST TROMETHAMINE 250 MCG/1 ML INJ IM PRN (06:39)
[2021-07-20] MEDS ORDERED: DIPHENOXYLATE/ATROPINE TAB PO PRN (06:40)
[2021-07-20 06:47] LABS: Hematocrit 37.3 % (30.3-42.9); Hemoglobin 12.4 gm/dl (10.1-14.3); Mean Corpuscular HGB Conc 33 % (30-34); Mean Corpuscular Volume 86 fl (79-97); Platelet Count 215 K/mm3 (140-440); Red Blood Count 4.35 M/mm3 (3.65-5.03); Red Cell Distribution Width 15.3 % (13.2-15.2)
--- NOTE | 2021-07-20 07:06 | Anesthesia Day of Surgery ---
Anesthesia Day of Surgery - Day of Surgery Patient Examined: Yes Patient H&P Reviewed: Yes Patient is NPO: Yes Beta Blockers: No Cardiac Clearance: No Pulmonary Clearance: No Barrington's Test: Negative
--- NOTE | 2021-07-20 07:07 | Anesthesia Consultation ---
Anesthesia Consult and Med Hx Date of service: 07/20/21 - Airway Anesthetic Teeth Evaluation: Poor ROM Head & Neck: Adequate Mental/Hyoid Distance: Adequate Mallampati Class: Class II Intubation Access Assessment: Probably Good - Pulmonary Exam CTA: Yes - Cardiac Exam Cardiac Exam: RRR - Pre-Operative Health Status ASA Pre-Surgery Classification: ASA2 Proposed Anesthetic Plan: Epidural, Spinal - Pulmonary Hx Smoking: No Hx Asthma: No Hx Respiratory Symptoms: No SOB: No COPD: No Home Oxygen Therapy: No Hx Pneumonia: No Hx Sleep Apnea: No - Cardiovascular System Hx Hypertension: No Hx Coronary Artery Disease: No Hx Heart Attack/AMI: No Hx Angina: No Hx Percutaneous Transluminal Coronary Angioplasty (PTCA): No Hx Cardia Arrhythmia: No Hx Pacemaker: No Hx Internal Defibrillator: No Hx Valvular Heart Disease: No Hx Heart Murmur: No Hx Peripheral Vascular Disease: No - Central Nervous System Hx Neuromuscular Disorder: No Hx Seizures: No CVA: No Hx Back Pain: Yes (Scoliosis) Hx Psychiatric Problems: No - Gastrointestinal Hx Ulcer: No Hx Gastroesophageal Reflux Disease: Yes - Endocrine Hx Renal Disease: No Hx End Stage Renal Disease: No Hx Cirrhosis: No Hx Liver Disease: No Hx Insulin Dependent Diabetes: No Hx Non-Insulin Dependent Diabetes: No Hx Thyroid Disease: No Hx Hypothyroidism: No Hx Hyperthyroidism: No - Hematic Hx Anemia: No Hx Sickle Cell Disease: No - Other Systems Hx Alcohol Use: No Hx Substance Use: No Hx Cancer: No Hx Obesity: Yes
[2021-07-20] MEDS ORDERED: LACTATED RINGERS 1,000 ML ONE (07:35)
[2021-07-20] MEDS ORDERED: ONDANSETRON 4 MG/2 ML INJ ONE (07:36)
[2021-07-20] MEDS ORDERED: BUPIVACAINE/PF (0.25%) 2.5 MG/ML 30 ML VIAL INFILTRATI ONE ×2 (07:56)
[2021-07-20] MEDS ORDERED: dexAMETHasone 20 MG/5 ML VIAL ONE (07:56)
[2021-07-20] MEDS ORDERED: PHENYLEPHRINE/NS 1,000 MCG/10 ML SYRINGE (OR USE) IV ONE (08:34)
[2021-07-20] MEDS ORDERED: KETOROLAC 30 MG/1 ML INJ ONE (08:44)
--- NOTE | 2021-07-20 09:01 | Operative Report ---
Operative Report Operative Report: Date of operation: 07/20/2021 Pre-operative diagnosis: 1. Intrauterine at 39 weeks gestational age 2. Previous delivery desires repeat delivery 3. Large for gestational age 4. Advanced maternal age 5. Abnormal 1 hour glucose tolerance test Post-operative diagnosis: 1. Intrauterine at 39 weeks gestational age 2. Previous delivery desires repeat delivery 3. Large for gestational age 4. Advanced maternal age 5. Abnormal 1 hour glucose tolerance test Procedure name(s): Low transverse uterine incision Surgeon: Alis Ibrahim MD Extracorporeal Circulation Specialist: [] Anesthesia: Spinal QBL: 773 mL Urine output: 300 mL of clear urine out at the end of the procedure Fluids: 2000 mL Findings: Liveborn male infant weight 8 Lbs. 14 oz. Apgars of 8 and 9 at one and 5 minutes Procedure: Patient was taking to the operating room. Spine anesthesia was placed. Patient was then prepped and draped in the usual sterile fashion Timeout was performed. Once an appropriate level of anesthesia was noted, a Pfannenstiel incision was made and extended the fascia which was incised and extended lateral direction. The overlying fascia was sharply dissected away from the underlying rectus muscles in the superior inferior direction. The midline was entered bluntly. Bladder blade was placed. Vesicouterine fold was incised with blunt dissection bladder flap was created. A transverse incision was made in the lower uterine segment and extended superolateral direction with finger fractionation. Copious and clear fluid was noted. was delivered from the cephalic, OP position, with spontaneous cry and excellent tone. Mouth and nose bulb suctioned. Cord was doubly clamped and cut infant was given to the resuscitation team present. Placenta was delivered. The uterus was exteriorized and cleaned of any further placental tissue and products of conception. Uterine incision was approximated using 0 Vicryl in a running interlocking stitch followed by further suture of 0 Vicryl in imbricating fashion. When hemostasis was noted the uterus was allowed back in the pelvic cavity. Pelvis was irrigated with warm normal saline. Once hemostasis was noted the rectus muscles were approximated using 0 Vicryl interrupted simple s titches 3. Once hemostasis was noted the fascia was approximated using 0 Vicryl simple running stitch. The incision was irrigated with warm saline, once hemostasis as noted, the subcuticular adipose tissue was reapproximated using 3-0 Vicryl in a simple running fashion. Skin was approximated using 4-0 Vicryl on a Timmy needle in a subcuticular manner. Counts were correct x3. Patient tolerated the procedure well, she was taken to recovery room in stable condition.
--- NOTE | 2021-07-20 09:50 | Progress Note ---
Spinal Anesthesia Block - Spinal Anesthesia Block Start Time: 07:38 Stop Time: 07:42 Performed by:: FLYNN CUTLER Procedure: Patient IDed, H&P reviewed, all questions and concerns were answered, and consent was signed. Timeout was performed at bedside. Patient in sitting position. Sterile prep and drape was performed. [3] ml of 1% lidocaine skin wheal at L[3]- L [4]. Needle introducer advanced. 25 gauge spinal needle advanced. Clear, free flowing CSF. negative blood, negative paresthesia. Spinal dose given. All needles removed. Patient tolerated procedure.
--- NOTE | 2021-07-20 09:52 | Progress Note ---
Regional Anesthesia Block - Regional Anesthesia Block Start Time: 08:50 Stop Time: 08:59 Performed By:: FLYNN CUTLER Procedure: Patient consented for TAP block for post surgical pain management. Patient identified, monitors placed, and time out performed. TAP identified bilaterally via ultrasound. Skin prepped bilaterally with [chlorhexidine] and [22g stimuplex] needle advanced to the TAP. [Marcaine 0.25% 30ml] injected under ultrasound guidance on the [left] side. [Marcaine 0.25% 30ml] injected under ultrasound guidance on the [right] side. Negative aspiration every 5mL, No change in heart rate or rhythm. Patient tolerated the procedure well. No apparent complications seen.
[2021-07-20] MEDS ORDERED: LANOLIN/ZINC/DIMETHICONE (LANSINOH) 7 GM TP PRN (11:30)
[2021-07-20] MEDS ORDERED: SIMETHICONE 80 MG CHEW TAB PO PRN (11:30)
[2021-07-20] MEDS ORDERED: MORPHINE 2 MG/1 ML INJ IV PRN (11:30)
[2021-07-20] MEDS ORDERED: ONDANSETRON 4 MG/2 ML INJ IV PRN (11:30)
[2021-07-20] MEDS ORDERED: NALOXONE 0.4 MG/1 ML INJ IV PRN (11:30)
[2021-07-20] MEDS ORDERED: MORPHINE 4 MG/1 ML INJ IV PRN (11:30)
[2021-07-20] MEDS ORDERED: OXYTOCIN DRIP 30 UNITS/500 ML BAG IV SCH (11:30)
[2021-07-20] MEDS ORDERED: PROMETHAZINE 25 MG RECT SUPP PR PRN (11:30)
[2021-07-20] MEDS ORDERED: SENNOSIDES 8.6 MG TAB PO PRN (11:30)
[2021-07-20] MEDS ORDERED: HYDROCORTISONE 25 MG RECTAL SUPP PR PRN (11:30)
[2021-07-20] MEDS ORDERED: WITCH HAZEL/ GLYCERIN PAD TP PRN (11:30)
[2021-07-20] MEDS ORDERED: MAGNESIUM HYDROXIDE (MOM) ORAL LIQD UDC PO PRN (11:30)
[2021-07-20] MEDS ORDERED: ACETAMINOPHEN 325 MG TAB PO PRN (13:00)
[2021-07-20] MEDS: ceFAZolin/NS 1 GM/50 ML 1 GM/50 ML BAG IV SCH ×2 (14:53→22:44)
--- NOTE | 2021-07-20 15:32 | Post Anesthesia Evaluation ---
- Post Anesthesia Evaluation Patient Participated: Yes Airway Patent: Yes Stable Respiratory Function: Yes Nausea/Vomiting: No Temp > 96.8F: Yes Pain Manageable: Yes Adequeate Hydration: Yes Anesthesia Complications: No Block Receding Appropriately: Yes Patient on Ventilator: No
[2021-07-20] MEDS: KETOROLAC 30 MG/1 ML INJ IV SCH ×2 (16:04→23:31)
[2021-07-20 20:17] LABS: Hematocrit 31.7 % (30.3-42.9); Hemoglobin 10.4 gm/dl (10.1-14.3)
[2021-07-20] MEDS ORDERED: ceFAZolin/NS 1 GM/50 ML 1 GM/50 ML BAG IV SCH (22:30)
[2021-07-20] MEDS: D5W/LACTATED RINGERS 1,000 ML IV SCH (22:50)
[2021-07-21] MEDS: D5W/LACTATED RINGERS 1,000 ML IV SCH (06:53)
--- NOTE | 2021-07-21 07:27 | Progress Note ---
Assessment and Plan VSSAF and post delivery H&H stable. Pt reports silverman catheter just removed. POC d/w pt. Ambulation and shower before dressing removal encouraged. Questions encouraged and answered. Pt verbalizes understanding and agrees to POC. Continue postoperative pathway and anticipate stable d/c home tomorrow. - Patient Problems (1) S/P Onset Date: ~07/21/18 Current Visit: No Status: Acute Subjective - Subjective Date of service: 07/21/21 Principal diagnosis: POD#1, s/p scheduled repeat Patient reports: appetite normal, pain well controlled : doing well Objective - Vital Signs Latest vital signs: Vital Signs Temp Pulse Resp BP BP Pulse Ox Pulse Ox 07/21/21 04:00 98.6 F 72 16 101/67 07/21/21 00:01 18 07/21/21 00:00 98.4 F 69 16 103/78 07/20/21 23:31 20 07/20/21 20:55 98.0 F 57 L 18 91/50 98 07/20/21 20:00 100 07/20/21 16:35 97.6 F 58 L 16 100/61 95 07/20/21 12:19 97.6 F 80 16 92/59 95 07/20/21 11:30 98 07/20/21 10:36 98.2 F 81 17 98/50 95 07/20/21 10:05 97.4 F L 73 17 90/49 98 07/20/21 10:00 77 16 94/52 98 07/20/21 09:55 73 16 97/57 98 07/20/21 09:50 68 17 94/56 98 07/20/21 09:45 74 16 94/52 98 07/20/21 09:30 97.3 F L 64 15 119/75 98 07/20/21 09:15 77 15 100/45 98 07/20/21 09:05 76 16 109/37 98 07/20/21 09:01 96.7 F L 72 16 85/46 98 07/20/21 07:28 98 Intake and Output 07/20/21 07/20/21 07/21/21 15:59 23:59 07:59 Intake Total 2270 480 1320 Output Total 783 362 1123 Balance 6540 370 -964 Intake: IV 2150 1000 ANCEF/NS 1 GM/50 ML 1 gm 50 In 50 ml @ 100 mls/hr IV Q8H DESMOND Rx#:[id number] D5lr 1,000 ml @ 125 mls/ 1000 hr IV DIRECT DESMOND Rx#: [id number] Oral 120 120 200 Intake, Free Water 360 120 Output: Urine 510 731 8797 Indwelling 200 Indwelling Catheter 850 1900 Other: Total, Intake Amount 120 120 200 Total, Output Amount 850 200 Estimated Blood Loss 773 - Exam Breasts: Present: normal Cardiovascular: Present: Regular rate Lungs: Present: Normal air movement Abdomen: Present: normal appearance, soft. Absent: distention, tenderness, guarding Vulva: both: normal Uterus: Present: normal, firm, fundal height below umbilicus Extremities: Present: normal Incision: Present: normal, dry, intact, dressed
[2021-07-21] MEDS ORDERED: TETANUS,DIPH,PERTUSS(ACELL) VACCINE 0.5 ML SYRINGE IM ONE (08:53)
[2021-07-21] MEDS ORDERED: oxyCODONE /ACETAMINOPHEN 5-325MG TAB PO PRN (08:53)
[2021-07-21] MEDS: KETOROLAC 30 MG/1 ML INJ IV SCH (09:59)
[2021-07-21] MEDS ORDERED: ACETAMINOPHEN 500 MG TAB PO PRN (20:00)
[2021-07-22] MEDS: IBUPROFEN 600 MG TAB PO SCH ×2 (01:00→07:14)
--- NOTE | 2021-07-22 08:28 | Discharge Summary ---
Providers - Providers Date of Admission: 07/20/21 05:51 Date of discharge: 07/22/21 Attending physician: MINESH DONALDSON 07/20/21 11:30 Consult to Risk Control Field Representative [CONS] Routine Reason For Exam: Primary care physician: METAL PAINTER Hospitalization Reason for admission: section Procedure: repeat low transverse Episiotomy: none Laceration: none Incision: normal, dry, intact Other procedures: none complications: none Discharge diagnosis: IUP at term delivered baby: male Hospital course: S: Pt doing well. Has strong desire to go home. Ambulating, voiding, and passing flatus okay. BC: Pt states is getting a vasectomy. O: VSS. Adequate I&O's. Fundus firm, minimal bleeding noted. H/H 10.4/31.7. Incision intact, no s/sx of infection, no drainage noted. A: 36 y.o. s/p rpt . In good condition . P: Discharge home with instructions. To schedule an incision check in the office in 1 week. Condition at discharge: Good Disposition: 01 HOME / SELF CARE / HOMELESS Plan - Discharge Medications Prescriptions: Lidocain2.5%/Prilocai2.5% [Emla] 5 gm TP ONCE #1 tube Ibuprofen [Motrin 800 MG tab] 800 mg PO TID PRN #30 tablet PRN Reason: Pain oxyCODONE /ACETAMINOPHEN [Percocet 5/325 mg] 1 - 2 tab PO Q6HR PRN #14 tablet PRN Reason: Pain - Provider Discharge Summary Activity: routine, no sex for 6 weeks, no heavy lifting 4 weeks, no strenuous exercise Diet: routine Instructions: routine Additional instructions: [] Smoking cessation referral if applicable(refer to patient education folder for contact #) [] Refer to [facility] Booklet Call your doctor immediately for: * Fever > 100.5 * Heavy vaginal bleeding ( >1 pad per hour) * Severe persistent headache * Shortness of breath * Reddened, hot, painful area to leg or breast * Drainage or odor from incision. * Keep incision clean and dry at all times and follow doctor's instructions regarding bathing/showering Congratulations on the of your baby boy! Thank you for allowing us to take care of you. Please keep your scheduled incision check in the office in 1 week. Should you have any questions or concerns after discharge, please do not hesitate to call the office at [phone]. - Follow up plan Follow up: PRIMARY CARE, [Primary Care Provider] - 7 Days
[2021-07-22 09:45] VITALS: BP 121/71
== END 2021-07-22 12:20 | disposition home or self-care (01) | DRG 788 ==
LOC: APU 05:51 → OB 10:58
PROVIDERS: ADMIT Obstetrics & Gynecology; ATTEND Obstetrics & Gynecology
PROC: 10D00Z1 Extraction of Products of Conception, Low, Open Approach (ICD-10-PCS; principal; 2021-07-20)
PROC: 3E0234Z Introduction of Serum, Toxoid and Vaccine into Muscle, Percutaneous Approach (ICD-10-PCS; 2021-07-21)
DX: O34.211 Maternal care for low transverse scar from previous cesarean delivery (principal); Z3A.39 39 weeks gestation of pregnancy; O99.810 Abnormal glucose complicating pregnancy; Z20.822 Contact with and (suspected) exposure to COVID-19; O99.62 Diseases of the digestive system complicating childbirth; O99.214 Obesity complicating childbirth; Z37.0 Single live birth; K21.9 Gastro-esophageal reflux disease without esophagitis; Z23 Encounter for immunization
CPT/HCPCS: 36415; 85014; 85018; 85027; 85461; 86592; 86850; 86870; 86900; 86901; G0378; J3490; J7060; J7121; J0690; J1100; J1885; J2370; J2405; J2590; J2765; J2790; J7120; U0003